=== PATIENT | female | born 1985 | race Caucasian/White ===

== ENCOUNTER 2017-05-18 10:07 | Emergency (ER) | payer MEDICAID, OTHER ==
[2017-05-18 10:18] VITALS: BP 107/94
--- NOTE | 2017-05-18 11:17 | EDM.PDOC ---
ED HPI GENERAL MEDICAL PROBLEM - General Chief Complaint: Lower Extremity Injury/Pain Stated Complaint: LEFT FOOT, TOP Time Seen by Provider: 05/18/17 11:00 Source of Information: Reports: Patient History Limitations: Reports: No Limitations - History of Present Illness INITIAL COMMENTS - FREE TEXT/NARRATIVE: This 31 yo female patient reports to the ED with left upper foot pain. The patient reports she is currently in the [facility] on vacation visiting her family. The patient reports she has been running on the gravel roads in shoes that she got from [employer] and has had increased pain over the past 24 hours. Onset Date: 05/17/17 Duration: Constant, Getting Worse Location: Reports: Lower Extremity, Left Quality: Reports: Ache, Dull Severity: Moderate Improves with: Reports: None Worsens with: Reports: None Associated Symptoms: Reports: No Other Symptoms Left Feet Pain Score (Numeric/FACES): 7 - Related Data Allergies Allergy/AdvReac Type Severity Reaction Status Date / Time No Known Allergies Allergy Verified 05/18/17 10:14 Home Meds: Home Meds . [No Known Home Meds] 05/18/17 [History] Past Medical History Immunologic History: Reports: Other (See Below) Other Immunologic History: spleenectomy Social & Family History - Family History Family Medical History: Noncontributory - Tobacco Use Smoking Status *Q: Never Smoker - Caffeine Use Caffeine Use: Reports: Coffee, Soda - Recreational Drug Use Recreational Drug Use: No Review of Systems - Review of Systems Review Of Systems: ROS reveals no pertinent complaints other than HPI. ED EXAM, GENERAL - Physical Exam Exam: See Below Exam Limited By: No Limitations General Appearance: Alert, WD/WN, Moderate Distress, Thin Eye Exam: Bilateral Eye: EOMI, Normal Inspection, PERRL Ears: Normal External Exam, Normal Canal, Hearing Grossly Normal, Normal TMs Nose: Normal Inspection, Normal Mucosa, No Blood Throat/Mouth: Normal Inspection, Normal Lips, Normal Teeth, Normal Gums, Normal Oropharynx, Normal Voice, No Airway Compromise Head: Atraumatic, Normocephalic Neck: Normal Inspection, Supple, Non-Tender, Full Range of Motion Respiratory/Chest: No Respiratory Distress, Lungs Clear, Normal Breath Sounds, No Accessory Muscle Use, Chest Non-Tender Cardiovascular: Normal Peripheral Pulses, Regular Rate, Rhythm, No Edema, No Gallop, No JVD, No Murmur, No Rub GI/Abdominal: Normal Bowel Sounds, Soft, Non-Tender, No Organomegaly, No Distention, No Abnormal Bruit, No Mass (Female) Exam: Deferred Rectal (Female) Exam: Deferred Back Exam: Normal Inspection, Full Range of Motion, NT Extremities: Other (left foot pain ) Neurological: Alert, Oriented, CN II-XII Intact, Normal Cognition, Normal Gait, Normal Reflexes, No Motor/Sensory Deficits Psychiatric: Normal Affect, Normal Mood Skin Exam: Warm, Dry, Intact, Normal Color, No Rash Lymphatic: No Adenopathy Course - Vital Signs Last Recorded V/S: Last Vital Signs Temp 36.3 C 05/18/17 10:15 Pulse 64 05/18/17 10:15 Resp 16 05/18/17 10:15 BP 107/94 H 05/18/17 10:15 Pulse Ox 100 05/18/17 10:15 - Orders/Labs/Meds Orders: Active Orders 24 hr Category Date Time Status Foot Comp Min 3V Lt [CR] Urgent Exams 05/18/17 10:24 Ordered Meds: Medications Discontinued Medications Generic Name Dose Route Start Last Admin Trade Name Wolfq PRN Reason Stop Dose Admin Ketorolac Tromethamine 60 mg 05/18/17 11:57 Toradol IM 05/18/17 11:58 ONETIME ONE Departure - Departure Time of Disposition: 11:59 Disposition: Home, Self-Care 01 Condition: Fair Clinical Impression: Tendinitis of left foot - Discharge Information Instructions: Tendinitis, [id number] Forms: ED Department Discharge Care Plan Goals: The patient was advised of the examination and x-ray results during the visit. The patient was given an injection of Toradol (60 mg) while in the ED. The patient was discharged with s script for Toradol (10 mg) #20 to take 1 by mouth every 6 hours. If the patient has any additional symptoms or concerns, the patient should follow-up with her primary care facility or return to the emergency department. - My Orders Last 24 Hours: My Active Orders 05/18/17 10:24 Foot Comp Min 3V Lt [CR] Urgent - Assessment/Plan Last 24 Hours: My Active Orders 05/18/17 10:24 Foot Comp Min 3V Lt [CR] Urgent
[2017-05-18] MEDS ORDERED: Ketorolac 30 MG/ML SDV IM ONE (11:57)
== END 2017-05-18 12:06 | disposition home or self-care (01) ==
LOC: EDBD → DL.ED 10:07
DX: M77.52 Other enthesopathy of left foot and ankle (principal); Z98.890 Other specified postprocedural states
CPT/HCPCS: 73630; 96372; 99283; J1885

== ENCOUNTER 2017-06-08 17:36 | Emergency (ER) | payer MEDICAID ==
[2017-06-08 18:20] VITALS: BP 130/84
--- NOTE | 2017-06-08 18:42 | EDM.PDOC ---
ED HPI GENERAL MEDICAL PROBLEM - General Chief Complaint: General Stated Complaint: STREP OR FLU, [id number] Time Seen by Provider: 06/08/17 18:37 Source of Information: Reports: Patient History Limitations: Reports: No Limitations - History of Present Illness INITIAL COMMENTS - FREE TEXT/NARRATIVE: 31 yo F is here for scratchy throat, cough (mostly dry), runny nose, chills since Sunday06-06-17. She also endorses feeling warm and T-max was 100F earlier today. She reportedly appeared pale to her coworkers this morning so they sent her home. She has tried Tylenol, Robitussin, and OTC cough & allergy tablets. No known sick contacts. She reports she quit smoking on Sunday06-03-17. She has had tonsillectomy in the past. Onset Date: 06/06/17 Generalized Pain Score (Numeric/FACES): 1 - Related Data Allergies Allergy/AdvReac Type Severity Reaction Status Date / Time No Known Allergies Allergy Verified 06/08/17 18:18 Home Meds: Home Meds . [No Known Home Meds] 05/18/17 [History] Past Medical History Immunologic History: Reports: Other (See Below) Other Immunologic History: spleenectomy - Past Surgical History HEENT Surgical History: Reports: Tonsillectomy Social & Family History - Family History Family Medical History: Noncontributory - Tobacco Use Smoking Status *Q: Never Smoker Second Hand Smoke Exposure: No - Caffeine Use Caffeine Use: Reports: Coffee, Energy Drinks, Soda, Tea - Recreational Drug Use Recreational Drug Use: No ED ROS GENERAL - Review of Systems Review Of Systems: See Below Constitutional: Reports: Chills HEENT: Reports: Throat Pain (Scratchy/sore throat.), Other (Ear pressure sensation.) Respiratory: Reports: Cough Cardiovascular: Reports: No Symptoms Endocrine: Reports: No Symptoms GI/Abdominal: Reports: No Symptoms : Reports: No Symptoms Musculoskeletal: Reports: No Symptoms Skin: Reports: No Symptoms Neurological: Reports: No Symptoms Psychiatric: Reports: No Symptoms Hematologic/Lymphatic: Reports: Other (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 Rapid strep screen obtained & returned negative.) Head: Atraumatic Neck: Supple, Other (No cervical lymphadenopathy.) Respiratory/Chest: No Respiratory Distress, Lungs Clear, Normal Breath Sounds, No Accessory Muscle Use Cardiovascular: Regular Rate, Rhythm, No Edema, No Murmur GI/Abdominal: Soft, Non-Tender, No Distention Course - Vital Signs Last Recorded V/S: Last Vital Signs Temp 97.7 F 06/08/17 18:18 Pulse 70 06/08/17 18:18 Resp 16 06/08/17 18:18 BP 130/84 06/08/17 18:18 Pulse Ox 100 06/08/17 18:18 - Orders/Labs/Meds Orders: Active Orders 24 hr Category Date Time Status CULTURE STREP A CONFIRMATION [] Stat Lab 06/08/17 18:25 Results STREP SCRN A RAPID W CULT CONF [] Stat Lab 06/08/17 18:25 Received Departure - Departure Time of Disposition: 18:50 Disposition: Home, Self-Care 01 Condition: Fair Clinical Impression: Viral URI with cough - Discharge Information Instructions: Upper Respiratory Infection, Adult, [id number], Cough, Adult Forms: ED Department Discharge Additional Instructions: Rapid strep screen is negative. You will be updated if the strep culture returns positive. stay well hydrated. symptoms control with as needed Tylenol/Motrin, lozenges, warm fluids (such as tea), honey, etc. frequent handwashing. viscous lidocaine prescribed (use on the prescription script). stay at home if fever, diarrhea, vomiting. Rx sent home: viscous lidocaine every 8 hrs as needed.
== END 2017-06-08 19:02 | disposition home or self-care (01) ==
LOC: DL.ED 17:36
DX: J06.9 Acute upper respiratory infection, unspecified (principal); Z98.890 Other specified postprocedural states
CPT/HCPCS: 87081; 87430; 99283

== ENCOUNTER 2017-08-10 01:52 | Emergency (ER) | payer MEDICAID ==
[2017-08-10] MEDS ORDERED: Sodium Chloride 0.9% 1,000 ML IV ONE (02:00)
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
[2017-08-10 02:36] LABS: CHLORIDE,CL 108 mmol/L (101-111); SODIUM,NA 142 mmol/L (135-145)
[2017-08-10 03:12] VITALS: BP 99/61
--- NOTE | 2017-08-13 12:51 | EKG ---
08/10/2017 - ELVER CASANOVA I reviewed the EKG and agree with the machine's reading. [facility] /[id number]
== END 2017-08-10 04:03 | disposition home or self-care (01) ==
LOC: DL.ED 01:52
DX: R55 Syncope and collapse (principal); F19.90 Other psychoactive substance use, unspecified, uncomplicated; S01.81XA Laceration without foreign body of other part of head, initial encounter; W19.XXXA Unspecified fall, initial encounter
CPT/HCPCS: 12011; 36415; 70450; 70486; 72125; 80053; 80305; 81001; 81025; 84484; 85025; 85379; 93005; 96360; 99284; G0480; J7030

== ENCOUNTER 2017-12-01 11:28 | Emergency (ER) | payer BC, MEDICAID ==
[2017-12-01 11:42] VITALS: BP 121/83
--- NOTE | 2017-12-01 12:33 | EDM.PDOC ---
Scribed by Polina Ramírez 12/01/17 1233 for Edgardo Trevizo MD ED HPI GENERAL MEDICAL PROBLEM - General Chief Complaint: Lower Extremity Injury/Pain Stated Complaint: [id number] BROKE TOE Time Seen by Provider: 12/01/17 11:41 Source of Information: Reports: Patient, RN, RN Notes Reviewed History Limitations: Reports: No Limitations - History of Present Illness INITIAL COMMENTS - FREE TEXT/NARRATIVE: Patient presents complaining of pain to the right 5th toe sustained this morning when the patient accidentally kicked a door frame. No other injury. Onset: Today Duration: Constant Location: Reports: Lower Extremity, Right Quality: Reports: Ache Severity: Moderate Improves with: Reports: None Worsens with: Reports: None Associated Symptoms: Reports: No Other Symptoms Right 5-Little toe Pain Score (Numeric/FACES): 8 - Related Data Allergies Allergy/AdvReac Type Severity Reaction Status Date / Time No Known Allergies Allergy Verified 08/10/17 01:59 Home Meds: Home Meds . [No Known Home Meds] 05/18/17 [History] Past Medical History Immunologic History: Reports: Other (See Below) Other Immunologic History: spleenectomy - Past Surgical History HEENT Surgical History: Reports: Tonsillectomy Social & Family History - Family History Family Medical History: Noncontributory - Tobacco Use Smoking Status *Q: Never Smoker Years of Tobacco use: 19 Packs/Tins Daily: 0.5 Second Hand Smoke Exposure: No - Caffeine Use Caffeine Use: Reports: Coffee, Energy Drinks, Soda, Tea - Recreational Drug Use Recreational Drug Use: No - Living Situation & Occupation Occupation: Employed Review of Systems - Review of Systems Review Of Systems: ROS reveals no pertinent complaints other than HPI. ED EXAM, GENERAL - Physical Exam Exam: See Below Exam Limited By: No Limitations General Appearance: Alert, WD/WN, No Apparent Distress Head: Atraumatic, Normocephalic Neck: Normal Inspection, Supple, Non-Tender, Full Range of Motion Respiratory/Chest: No Respiratory Distress Cardiovascular: Normal Peripheral Pulses, Regular Rate, Rhythm, No Edema, No Gallop, No JVD, No Murmur, No Rub Back Exam: Normal Inspection, Full Range of Motion, NT Extremities: Other (Right 5th toe with mild soft tissue swelling and bruising. Tender to palpation. ) Neurological: Alert, Oriented, CN II-XII Intact, Normal Cognition, Normal Gait, Normal Reflexes, No Motor/Sensory Deficits Psychiatric: Normal Affect, Normal Mood Skin Exam: Warm, Dry, Intact, Normal Color, No Rash Course - Vital Signs Last Recorded V/S: Last Vital Signs Temp 36.9 C 12/01/17 11:41 Pulse 78 12/01/17 11:41 Resp 16 12/01/17 11:41 BP 121/83 12/01/17 11:41 Pulse Ox 98 12/01/17 11:41 - Radiology Interpretation Free Text/Narrative:: X-ray right 5th toe: non-displaced fracture of right 5th proximal phalanx, see Rad. report. Departure - Departure Time of Disposition: 12:17 Disposition: Home, Self-Care 01 Condition: Good Clinical Impression: Fracture of fifth toe, right, closed Qualifiers: Encounter type: initial encounter Qualified Code(s): S92.501A - Displaced unspecified fracture of right lesser toe(s), initial encounter for closed fracture - Discharge Information Instructions: Toe Fracture, [id number] Referrals: PCP,None [Ordering Only Provider] - Forms: ED Department Discharge Additional Instructions: RX: Polvadera 5/325mg. *DO not drive or work while under the influence of this medication. Rest, ice and elevate right foot. Wear shoe splint for 3 to 4 weeks. Renny tape affected to as needed for comfort. Follow up with your doctor in 2 to 3 weeks for recheck. I have read and agree with the documentation that has been completed regarding this visit. By signing this record, I attest that the documentation was completed in my physical presence and is an accurate record of the encounter.
== END 2017-12-01 12:25 | disposition home or self-care (01) ==
LOC: DL.ED 11:28
DX: S92.511A Displaced fracture of proximal phalanx of right lesser toe(s), initial encounter for closed fracture (principal); Z72.0 Tobacco use; W22.09XA Striking against other stationary object, initial encounter
CPT/HCPCS: 73660-T9; 99283

== ENCOUNTER 2017-12-23 17:28 | Emergency (ER) | payer BC, MEDICAID ==
[2017-12-23] MEDS ORDERED: Sodium Chloride 0.9% 10 ML Syringe FLUSH PRN (17:41)
[2017-12-23 18:19] LABS: CHLORIDE,CL 106 mmol/L (101-111); SODIUM,NA 138 mmol/L (135-145)
[2017-12-23 20:02] VITALS: BP 121/73
[2017-12-23] MEDS ORDERED: Acetaminophen 325 MG Tab PO ONE (20:27)
--- NOTE | 2017-12-23 20:46 | EDM.PDOC ---
Scribed by Polina Ramírez 12/23/17 [id number] for Reece Cooper MD ED HPI GENERAL MEDICAL PROBLEM - General Chief Complaint: Headache Stated Complaint: BY AMBULANCE Time Seen by Provider: 12/23/17 18:53 Source of Information: Reports: Patient History Limitations: Reports: No Limitations - History of Present Illness INITIAL COMMENTS - FREE TEXT/NARRATIVE: states remember going to [employer] and woke up on floor of [employer]. had same last aug-jun and nobody knows what's wrong. denies grugs or alcohol but thinks might have taken more wellbutrin for her anxiety. presently feels shaky and floating. and back of head hurts a lot. denies chest pain but does feel a little tight on off. - Related Data Allergies Allergy/AdvReac Type Severity Reaction Status Date / Time No Known Allergies Allergy Verified 08/10/17 01:59 Home Meds: Home Meds Diclofenac Sodium [Voltaren] 75 mg PO DAILY 12/23/17 [History] buPROPion [buPROPion XL] 150 mg PO DAILY 12/23/17 [History] traMADol HCl [Tramadol HCl] 50 mg PO PRN 12/23/17 [History] Past Medical History Psychiatric History: Reports: Depression Immunologic History: Reports: Other (See Below) Other Immunologic History: spleenectomy - Past Surgical History HEENT Surgical History: Reports: Tonsillectomy GI Surgical History: Reports: Other (See Below) Other GI Surgeries/Procedures: spleenectomy Endocrine Surgical History: Reports: Other (See Below) Other Endocrine Surgeries/Procedures: spleenectomy Social & Family History - Family History Family Medical History: Noncontributory - Tobacco Use Smoking Status *Q: Former Smoker Years of Tobacco use: 20 Packs/Tins Daily: 0.5 Used Tobacco, but Quit: Yes Month/Year Tobacco Last Used: november 2017 Second Hand Smoke Exposure: No - Caffeine Use Caffeine Use: Reports: Coffee, Soda - Recreational Drug Use Recreational Drug Use: No - Living Situation & Occupation Occupation: Employed ED ROS GENERAL - Review of Systems Review Of Systems: ROS reveals no pertinent complaints other than HPI. - Physical Exam Exam: See Below Exam Limited By: No Limitations General Appearance: Alert, WD/WN, Anxious, Mild Distress, Other (upset) Eye Exam: Bilateral Eye: PERRL (pupils ER @ 4mm) Ears: Normal External Exam, Normal Canal, Hearing Grossly Normal, Normal TMs Throat/Mouth: Normal Voice, No Airway Compromise Head Exam: Scalp Tenderness, Other (no O/B, occiput tenderness) Neck: Non-Tender, Full Range of Motion Respiratory/Chest: No Respiratory Distress Cardiovascular: Regular Rate, Rhythm GI/Abdominal: Soft, Non-Tender Neuro Exam (Abbreviated): Alert, Oriented, Normal Cognition, Normal Gait, No Motor/Sensory Deficits Psychiatric: Anxious Skin Exam: Warm, Dry, Normal Color EKG INTERPRETATION EKG Date: 12/23/17 Time: 18:07 Rhythm: Other (sinus rhythm) Rate (Beats/Min): 79 [place]: Normal P-Wave: Present QRS: Normal ST-T: Normal QT: Normal Course - Vital Signs Last Recorded V/S: Last Vital Signs Temp 36.8 C 12/23/17 20:01 Pulse 76 12/23/17 20:01 Resp 16 12/23/17 20:01 BP 121/73 12/23/17 20:01 Pulse Ox 99 12/23/17 20:01 - Orders/Labs/Meds Orders: Active Orders 24 hr Category Date Time Status EKG Documentation Completion [RC] STAT Care 12/23/17 17:41 Active Peripheral IV Care [RC] . DIRECTED Care 12/23/17 17:42 Active Head wo Cont [CT] Urgent Exams 12/23/17 18:52 Taken Sodium Chloride 0.9% [Saline Flush] Med 12/23/17 17:41 Active 10 ml FLUSH ASDIRECTED PRN Peripheral IV Insertion Adult [OM.PC] Stat Oth 12/23/17 17:41 Ordered Medication Orders Sodium Chloride (Saline Flush) 10 ml FLUSH ASDIRECTED PRN PRN Reason: Keep Vein Open Last Admin: 12/23/17 18:22 Dose: 10 ml Labs: Laboratory Tests 12/23/17 12/23/17 12/23/17 Range/Units 17:50 17:50 18:15 WBC 10.0 (5.0-10.0) 10^3/uL RBC 3.72 L (4.2-5.4) 10^6/uL Hgb 12.6 (12.0-16.0) g/dL Hct 37.0 (37.0-47.0) % MCV 99.5 (80-100) fL MCH 33.9 (27.0-34.0) pg MCHC 34.1 (33.0-35.0) g/dL Plt Count 378 D (150-450) 10^3/uL Neut % (Auto) 41.0 L (42.2-75.2) % Lymph % (Auto) 37.5 (20.5-50.1) % Randolph % (Auto) 19.3 H (2-8) % Eos % (Auto) 1.7 (1.0-3.0) % Baso % (Auto) 0.5 (0.0-1.0) % Add Manual Diff Yes Neutrophils % (Manual) 45 (42-75) % Band Neutrophils % 2 % Lymphocytes % (Manual) 30 (20-50) % Atypical Lymphs % 0 % Monocytes % (Manual) 21 H (2-8) % Eosinophils % (Manual) 2 (1-3) % Basophils % (Manual) 0 Sodium 138 (135-145) mmol/L Potassium 3.4 L (3.6-5.0) mmol/L Chloride 106 (101-111) mmol/L Carbon Dioxide 22.0 (21.0-31.0) mmol/L Anion Gap 13.4 BUN 9 (7-18) mg/dL Creatinine 0.7 (0.6-1.3) mg/dL Est Cr Clr Drug Dosing 111.16 mL/min Estimated GFR (MDRD) > 60 BUN/Creatinine Ratio 12.85 Glucose 88 (74-105) mg/dL Calcium 9.4 (8.4-10.2) mg/dl Total Bilirubin 0.2 (0.2-1.0) mg/dL AST 29 (10-42) IU/L ALT 31 (10-60) IU/L Alkaline Phosphatase 39 L (42-121) IU/L Troponin I (0.00-0.02) ng/ml Total Protein 7.1 (6.7-8.2) g/dl Albumin 4.3 (3.2-5.5) g/dl Globulin 2.8 Albumin/Globulin Ratio 1.54 Urine Color Yellow (YELLOW) Urine Appearance Slightly cloudy (CLEAR) Urine pH 6.0 (5.0-9.0) Ur Specific Am[place] 1.015 (1.005-1.030) Urine Protein 30 H (NEGATIVE) Urine Glucose (UA) Negative (NEGATIVE) Urine Ketones Negative (NEGATIVE) Urine Occult Blood Negative (NEGATIVE) Urine Nitrite Negative (NEGATIVE) Urine Bilirubin Negative (NEGATIVE) Urine Urobilinogen 0.2 (0.2-1.0) mg/dL Ur Leukocyte Esterase Trace H (NEGATIVE) Urine RBC 0-5 /HPF Urine WBC 5-10 H (0-5/HPF) /HPF Ur Epithelial Cells Many H /HPF Urine Bacteria Many H (0-FEW/HPF) /HPF Urine Mucus Moderate H /LPF Urine Other See note Urine HCG, Qual Urine Opiates Screen (NEGATIVE) Ur Oxycodone Screen (NEGATIVE) Urine Methadone Screen (NEGATIVE) Ur Barbiturates Screen (NEGATIVE) U Tricyclic Antidepress (NEGATIVE) Ur Phencyclidine Scrn (NEGATIVE) Ur Amphetamine Screen (NEGATIVE) U Methamphetamines Scrn (NEGATIVE) Urine MDMA Screen (NEGATIVE) U Benzodiazepines Scrn (NEGATIVE) Urine Cocaine Screen (NEGATIVE) U Marijuana (THC) Screen (NEGATIVE) Ethyl Alcohol < 5 mg/dL 12/23/17 12/23/17 12/23/17 Range/Units 18:15 18:15 18:50 WBC (5.0-10.0) 10^3/uL RBC (4.2-5.4) 10^6/uL Hgb (12.0-16.0) g/dL Hct (37.0-47.0) % MCV (80-100) fL MCH (27.0-34.0) pg MCHC (33.0-35.0) g/dL Plt Count (150-450) 10^3/uL Neut % (Auto) (42.2-75.2) % Lymph % (Auto) (20.5-50.1) % Randolph % (Auto) (2-8) % Eos % (Auto) (1.0-3.0) % Baso % (Auto) (0.0-1.0) % Add Manual Diff Neutrophils % (Manual) (42-75) % Band Neutrophils % % Lymphocytes % (Manual) (20-50) % Atypical Lymphs % % Monocytes % (Manual) (2-8) % Eosinophils % (Manual) (1-3) % Basophils % (Manual) Sodium (135-145) mmol/L Potassium (3.6-5.0) mmol/L Chloride (101-111) mmol/L Carbon Dioxide (21.0-31.0) mmol/L Anion Gap BUN (7-18) mg/dL Creatinine (0.6-1.3) mg/dL Est Cr Clr Drug Dosing mL/min Estimated GFR (MDRD) BUN/Creatinine Ratio Glucose (74-105) mg/dL Calcium (8.4-10.2) mg/dl Total Bilirubin (0.2-1.0) mg/dL AST (10-42) IU/L ALT (10-60) IU/L Alkaline Phosphatase (42-121) IU/L Troponin I < 0.02 (0.00-0.02) ng/ml Total Protein (6.7-8.2) g/dl Albumin (3.2-5.5) g/dl Globulin Albumin/Globulin Ratio Urine Color (YELLOW) Urine Appearance (CLEAR) Urine pH (5.0-9.0) Ur Specific Amasa (1.005-1.030) Urine Protein (NEGATIVE) Urine Glucose (UA) (NEGATIVE) Urine Ketones (NEGATIVE) Urine Occult Blood (NEGATIVE) Urine Nitrite (NEGATIVE) Urine Bilirubin (NEGATIVE) Urine Urobilinogen (0.2-1.0) mg/dL Ur Leukocyte Esterase (NEGATIVE) Urine RBC /HPF Urine WBC (0-5/HPF) /HPF Ur Epithelial Cells /HPF Urine Bacteria (0-FEW/HPF) /HPF Urine Mucus /LPF Urine Other Urine HCG, Qual Negative Urine Opiates Screen Negative (NEGATIVE) Ur Oxycodone Screen Negative (NEGATIVE) Urine Methadone Screen Negative (NEGATIVE) Ur Barbiturates Screen Negative (NEGATIVE) U Tricyclic Antidepress Negative (NEGATIVE) Ur Phencyclidine Scrn Negative (NEGATIVE) Ur Amphetamine Screen Negative (NEGATIVE) U Methamphetamines Scrn Negative (NEGATIVE) Urine MDMA Screen Negative (NEGATIVE) U Benzodiazepines Scrn Positive H (NEGATIVE) Urine Cocaine Screen Negative (NEGATIVE) U Marijuana (THC) Screen Negative (NEGATIVE) Ethyl Alcohol mg/dL Meds: Medications Generic Name Dose Route Start Last Admin Trade Name Freq PRN Reason Stop Dose Admin Sodium Chloride 10 ml 12/23/17 17:41 12/23/17 18:22 Saline Flush FLUSH 10 ml ASDIRECTED PRN Administration Keep Vein Open Discontinued Medications Generic Name Dose Route Start Last Admin Trade Name Freq PRN Reason Stop Dose Admin Acetaminophen 325 mg 12/23/17 20:27 12/23/17 20:33 Tylenol PO 12/23/17 20:28 325 mg NOW ONE Administration - Re-Assessments/Exams Free Text/Narrative Re-Assessment/Exam: 12/23/17 20:28 results discussed with pt & grandma who states pt had same last year where pt was shaking like a seizure but her mother never took her for f/u. Departure - Departure Time of Disposition: 20:29 Disposition: Home, Self-Care 01 Condition: Good Clinical Impression: Contusion of scalp, initial encounter, Syncopal seizure - Discharge Information Instructions: Head Injury, Adult, [id number] Forms: ED Department Discharge Additional Instructions: 1) rest and avoid bending lifting straining 2) ice to swelling on back of head 3) see EPI TOMORROW FOR EEG STUDY and possible NEUROLOGY CONSULT FOR SEIZURES 4) avoid solid foods tonight, may have jello, popsicle, juice. 5) may give tylenol as needed for headache 6) recheck if there is any change or concern - My Orders Last 24 Hours: My Active Orders 12/23/17 18:52 Head wo Cont [CT] Urgent - Assessment/Plan Last 24 Hours: My Active Orders 12/23/17 18:52 Head wo Cont [CT] Urgent I have read and agree with the documentation that has been completed regarding this visit. By signing this record, I attest that the documentation was completed in my physical presence and is an accurate record of the encounter.
--- NOTE | 2017-12-24 17:17 | EKG ---
12/23/2017 - ELVER CASANOVA - TIME: 1807 hours. FINDINGS: EKG shows sinus rhythm rate of 79 per minute. [facility] /[id number]
== END 2017-12-23 20:41 | disposition home or self-care (01) ==
LOC: DL.ED 17:28
DX: S00.03XA Contusion of scalp, initial encounter (principal); R55 Syncope and collapse; R56.9 Unspecified convulsions; Z79.899 Other long term (current) drug therapy; Z87.891 Personal history of nicotine dependence; X58.XXXA Exposure to other specified factors, initial encounter
CPT/HCPCS: 36415; 70450; 80053; 80305; 81001; 81025; 84484; 85025; 93005; 99285; A9270-GY; G0480; J7050

== ENCOUNTER 2018-06-28 07:05 | Emergency (ER) | payer SELFPAY ==
[2018-06-28 08:01] VITALS: BP 127/73
--- NOTE | 2018-06-28 14:52 | CR ---
Clinical history: Clinical history: 32-year-old female "stubbed" second toe. Interpretation: 3 views left second toe and adjacent digits confirm soft tissue swelling with tiny no ndisplaced avulsion fragment (age uncertain-not appreciated on 18 May 2017 however) dorsal aspect base of the distal phalanx at the DIP joint second toe (lateral view). No sign of other fracture or joint dislocation. No foreign bodies.
== END 2018-06-28 09:14 | disposition home or self-care (01) ==
LOC: DL.ED 07:05
DX: S92.532A Displaced fracture of distal phalanx of left lesser toe(s), initial encounter for closed fracture (principal); W22.8XXA Striking against or struck by other objects, initial encounter
CPT/HCPCS: 73660-T1; 99282; 99283

== ENCOUNTER 2020-02-21 00:57 | Emergency (ER) | payer OTHER ==
[2020-02-21] MEDS ORDERED: GI Cocktail Oral Solution 30 ML PO ONE (01:12)
[2020-02-21] MEDS ORDERED: Ondansetron 4 MG/2 ML SDV IVPUSH ONE (01:12)
--- NOTE | 2020-02-21 01:15 | EDM.PDOC ---
ED HPI GENERAL MEDICAL PROBLEM - General Chief Complaint: Abdominal Pain Stated Complaint: SEVERE ABD PAIN Time Seen by Provider: 02/21/20 01:13 Source of Information: Reports: Patient History Limitations: Reports: No Limitations - History of Present Illness INITIAL COMMENTS - FREE TEXT/NARRATIVE: onset epiG pain about 10pm was eating cheese sticks prior, been retching and not getting better. prior h/o of problem. denies . Epigastric Pain Score (Numeric/FACES): 5 - Related Data Allergies Allergy/AdvReac Type Severity Reaction Status Date / Time No Known Allergies Allergy Verified 02/21/20 01:11 Home Meds: Home Meds . 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 She states she has seen neurologist, and no seizure meds recommended. She states that when she has these her heartrate is always low, but she has never worn a holter monitor or had cardiology consult. Gastrointestinal History: Reports: GERD Psychiatric History: Reports: Depression Immunologic History: Reports: Other (See Below) Other Immunologic History: spleenectomy - Past Surgical History HEENT Surgical History: Reports: Tonsillectomy GI Surgical History: Reports: Other (See Below) Other GI Surgeries/Procedures: spleenectomy Endocrine Surgical History: Reports: Other (See Below) Other Endocrine Surgeries/Procedures: spleenectomy Social & Family History - Family History Family Medical History: Noncontributory - Caffeine Use Caffeine Use: Reports: Coffee, Soda - Living Situation & Occupation Occupation: Employed ED ROS GENERAL - Review of Systems Review Of Systems: Comprehensive ROS is negative, except as noted in HPI. ED EXAM, GI/ABD - Physical Exam Exam: See Below Exam Limited By: No Limitations General Appearance: Alert, WD/WN, Mild Distress, Moderate Distress, Active Emesis, Other (crying) Ears: Hearing Grossly Normal Throat/Mouth: Normal Voice, No Airway Compromise Head: Atraumatic Neck: Non-Tender, Full Range of Motion Respiratory/Chest: No Respiratory Distress Cardiovascular: Regular Rate, Rhythm GI/Abdominal Exam: Tender, Other (epigastric region). No: Distended, Guarding, Rigid, Rebound Neurological: Alert, Oriented, Normal Cognition, Normal Gait, No Motor/Sensory Deficits Psychiatric: Tearful Skin Exam: Warm, Dry, Normal Color Lymphatic: No Adenopathy Course - Vital Signs Last Recorded V/S: Last Vital Signs Temp Pulse 102 H 02/21/20 01:16 Resp 20 02/21/20 01:16 BP 127/88 02/21/20 01:16 Pulse Ox 97 02/21/20 01:16 - Orders/Labs/Meds Orders: Active Orders 24 hr Category Date Time Status Abdomen Pelvis w Cont [CT] Urgent Exams 02/21/20 01:35 Taken Labs: Laboratory Tests 02/21/20 02/21/20 Range/Units 01:14 01:14 WBC 18.7 H (5.0-10.0) 10^3/uL RBC 4.39 (4.2-5.4) 10^6/uL Hgb 15.4 (12.0-16.0) g/dL Hct 41.7 (37.0-47.0) % MCV 95.0 (80-100) fL MCH 35.1 H (27.0-34.0) pg MCHC 36.9 H (33.0-35.0) g/dL Plt Count 289 (150-450) 10^3/uL Neut % (Auto) 58.3 (42.2-75.2) % Lymph % (Auto) 27.7 (20.5-50.1) % [place] % (Auto) 12.7 H (2-8) % Eos % (Auto) 1.1 (1.0-3.0) % Baso % (Auto) 0.2 (0.0-1.0) % Sodium 136 (136-145) mmol/L Potassium 3.9 (3.5-5.1) mmol/L Chloride 98 (98-107) mmol/L Carbon Dioxide 30 (21-32) mmol/L Anion Gap 11.9 (7-13) mEq/L BUN 13 (7-18) mg/dL Creatinine 1.07 H (0.55-1.02) mg/dL Est Cr Clr Drug Dosing 71.36 mL/min Estimated GFR (MDRD) 58 BUN/Creatinine Ratio 12.1 (No establ ref range) Glucose 93 (74-99) mg/dL Calcium 9.9 (8.5-10.1) mg/dL Total Bilirubin 0.3 (0.2-1.0) mg/dL AST 17 (15-37) U/L ALT 24 (14-59) U/L Alkaline Phosphatase 69 (46-116) U/L Total Protein 7.9 (6.4-8.2) g/dL Albumin 4.5 (3.4-5.0) g/dL Globulin 3.4 Albumin/Globulin Ratio 1.3 Amylase 29 (25-115) U/L Lipase 53 L (73-393) U/L Meds: Medications Discontinued Medications Generic Name Dose Route Start Last Admin Trade Name Freq PRN Reason Stop Dose Admin Al Hydroxide/Mg Hydroxide 30 ml 02/21/20 01:12 02/21/20 01:19 Gi Cocktail PO 02/21/20 01:13 30 ml ONETIME ONE Administration Iopamidol 100 ml 02/21/20 01:35 02/21/20 01:42 Isovue-300 (61%) IVPUSH 02/21/20 01:36 100 ml ONETIME ONE Administration Ondansetron HCl 4 mg 02/21/20 01:12 02/21/20 01:17 Zofran IVPUSH 02/21/20 01:13 4 mg ONETIME ONE Administration - Re-Assessments/Exams Free Text/Narrative Re-Assessment/Exam: 02/21/20 02:43 results discussed with pt who is feeling much better s/p GI cocktail. Departure - Departure Time of Disposition: 02:43 Disposition: Home, Self-Care 01 Condition: Good Clinical Impression: Constipation by delayed colonic transit Abdominal pain Qualifiers: Abdominal location: periumbilical Qualified Code(s): R10.33 - Periumbilical pain - Discharge Information Instructions: Constipation, Adult, [id number] Forms: ED Department Discharge Additional Instructions: 1) avoid solid foods next 48 hours 2) have liquids, jello, prune juice, soft foods 3) follow up at clinic rx given; bentyl 10mg bid x 12 Sepsis Event Note - Focused Exam Vital Signs: Vital Signs Pulse Resp BP Pulse Ox 02/21/20 01:16 102 H 20 127/88 97 Date Exam was Performed: 02/21/20 Time Exam was Performed: 02:43 - My Orders Last 24 Hours: My Active Orders 02/21/20 01:35 Abdomen Pelvis w Cont [CT] Urgent - Assessment/Plan Last 24 Hours: My Active Orders 02/21/20 01:35 Abdomen Pelvis w Cont [CT] Urgent
[2020-02-21 01:18] VITALS: BP 127/88; PULSE 102
[2020-02-21] MEDS ORDERED: Iopamidol 612 MG/ML 100 ML Bottle IVPUSH ONE (01:35)
[2020-02-21 02:11] LABS: ANION GAP 11.9 mEq/L (7-13)
== END 2020-02-21 02:51 | disposition home or self-care (01) ==
LOC: DL.ED 00:57
DX: K59.01 Slow transit constipation (principal)
CPT/HCPCS: 36415; 74177; 80053; 82150; 83690; 85025; 96374; 99284; A9270; J2405; Q9967; 99283

== ENCOUNTER 2021-10-16 09:28 | Emergency (ER) | payer MEDICAID ==
[2021-10-16 10:53] VITALS: BP 120/58; PULSE 65
[2021-10-16 11:52] LABS: BARBITURATES,URINE NEGATIVE (NEGATIVE); BENZODIAZEPINE,URINE NEGATIVE (NEGATIVE); MDMA (ECSTASY), URINE POSITIVE (NEGATIVE); METHADONE,URINE NEGATIVE (NEGATIVE); METHAMPHETAMINES,URINE POSITIVE (NEGATIVE); OPIATES,URINE NEGATIVE (NEGATIVE); TCA,URINE POSITIVE (NEGATIVE)
[2021-10-16 11:53] LABS: AMPHETAMINES,URINE POSITIVE (NEGATIVE); OXYCODONE,URINE NEGATIVE (NEGATIVE); PHENCYCLIDINE,URINE NEGATIVE (NEGATIVE)
[2021-10-16 12:01] LABS: CORONAVIRUS COVID-19 NAA NEGATIVE (NEGATIVE)
[2021-10-16 12:55] LABS: ANION GAP 14.8 mEq/L (7-13); CHLORIDE,CL 102 mmol/L (98-107); SODIUM,NA 138 mmol/L (136-145)
== END 2021-10-16 13:58 | disposition home or self-care (01) ==
LOC: DL.ED 09:28
DX: O99.891 Other specified diseases and conditions complicating pregnancy (principal); R10.2 Pelvic and perineal pain; O99.511 Diseases of the respiratory system complicating pregnancy, first trimester; J06.9 Acute upper respiratory infection, unspecified; Z72.0 Tobacco use; Z20.822 Contact with and (suspected) exposure to COVID-19
CPT/HCPCS: 0240U; 36415; 80053; 80305; 81003; 81025; 82150; 83690; 83735; 84702; 85025; 86140; 99284

== ENCOUNTER 2023-03-17 07:01 | Emergency (ER) | payer MEDICAID ==
[2023-03-17] MEDS ORDERED: Bupivacaine 0.25% 10 ML SDV INJECT ONE (07:02)
[2023-03-17 08:03] VITALS: BP 123/90; PULSE 67
== END 2023-03-17 07:53 | disposition home or self-care (01) ==
LOC: DL.ED 07:01
DX: O99.612 Diseases of the digestive system complicating pregnancy, second trimester (principal); K02.9 Dental caries, unspecified; Z3A.20 20 weeks gestation of pregnancy; Z79.899 Other long term (current) drug therapy
CPT/HCPCS: 64400; 99282; J3490

== ENCOUNTER 2023-07-12 09:43 | Inpatient (IN) | payer MEDICAID ==
[2023-07-12] MEDS ORDERED: Penicillin G Potassium 5 MILLUNITS in Sodium Chloride 0.9% 100 ML IV ONE (10:32)
[2023-07-12] MEDS ORDERED: Carboprost Tromethamine 250 MCG/1 ML Amp IM PRN (10:47)
[2023-07-12] MEDS ORDERED: Lidocaine 1% 30 ML SDV INJECT ONE (10:47)
[2023-07-12] MEDS ORDERED: Sodium Chloride 0.9% 10 ML Syringe FLUSH PRN ×2 (10:47→19:18)
[2023-07-12] MEDS ORDERED: Methylergonovine 0.2 MG/1 ML Amp IM PRN (10:47)
[2023-07-12] MEDS ORDERED: Tranexamic Acid 1,000 MG in Sodium Chloride 0.9% 100 ML IV PRN ×4 (10:47)
[2023-07-12] MEDS ORDERED: Lactated Ringers 1,000 ML IV ONE (10:47)
[2023-07-12] MEDS ORDERED: Misoprostol 25 MCG (1/4 of 100 MCG) Tab VAG PRN (10:52)
[2023-07-12] MEDS ORDERED: Penicillin G Potassium 5,000,000 Unit Vial ONE (14:27)
[2023-07-12] MEDS: Penicillin G Potassium 3 MILLUNITS in Sodium Chloride 0.9% 100 ML IV SCH ×3 (14:34→23:23)
[2023-07-12] MEDS: Lactated Ringers 1,000 ML IV SCH ×2 (16:01→16:52)
[2023-07-12] MEDS: Oxytocin/Normal Saline 30 UNIT/500 ML BAG IV SCH ×2 (16:01→18:56)
[2023-07-12] MEDS ORDERED: Phenylephrine HCl In 0.9% NaCl 1 MG/10 ML Syringe IVPUSH PRN (17:03)
[2023-07-12] MEDS ORDERED: ePHEDrine 50 MG/ML SDV IVPUSH PRN (17:03)
[2023-07-12] MEDS ORDERED: Ropivacaine 200 MG in Premix Bag 1 BAG EPIDUR SCH (17:15)
[2023-07-12] MEDS: Misoprostol 400 MCG (4 X 100 MCG TAB) RECTAL PRN ×2 (18:25→18:50)
[2023-07-12] MEDS ORDERED: Oxytocin 10 Units/1 ML SDV IM PRN (19:18)
[2023-07-12] MEDS ORDERED: Benzocaine/Menthol 20%-0.5% Spray 78 GM Cannister TOP PRN (19:18)
[2023-07-12] MEDS ORDERED: Simethicone 80 MG Tab.Chew PO PRN (19:18)
[2023-07-12 19:27] LABS: HEMATOCRIT 28.4 % (37.0-47.0); HEMOGLOBIN 9.4 g/dL (12.0-16.0); MEAN CORPUSCULAR HEMOGLOBIN 33.1 pg (27.0-34.0); MEAN CORPUSCULAR HGB CONC 33.1 g/dL (33.0-35.0); RED BLOOD CELL COUNT 2.84 10^6/uL (4.2-5.4); WHITE BLOOD CELL COUNT,WBC 15.8 10^3/uL (5.0-10.0)
[2023-07-12] MEDS ORDERED: Scopolamine 1.5 MG Transdermal Patch TRDERM PRN (20:01)
[2023-07-12] MEDS ORDERED: ceFAZolin 2 GM Vial IVPUSH SCH (22:00)
[2023-07-12] MEDS: Docusate Sodium 100 MG Cap PO PRN (23:07)
[2023-07-12] MEDS: Ibuprofen 800 MG Tab PO PRN (23:07)
[2023-07-13 02:01] LABS: HEMATOCRIT 24.6 % (37.0-47.0); HEMOGLOBIN 8.2 g/dL (12.0-16.0); MEAN CORPUSCULAR HEMOGLOBIN 32.9 pg (27.0-34.0); MEAN CORPUSCULAR HGB CONC 33.3 g/dL (33.0-35.0); MEAN CORPUSCULAR VOLUME 98.8 fL (80-100); RED BLOOD CELL COUNT 2.49 10^6/uL (4.2-5.4)
[2023-07-13] MEDS: Penicillin G Potassium 3 MILLUNITS in Sodium Chloride 0.9% 100 ML IV SCH (03:08)
[2023-07-13] MEDS: ceFAZolin 2 GM Vial IVPUSH SCH ×3 (04:05→16:18)
[2023-07-13 06:50] LABS: MEAN CORPUSCULAR HEMOGLOBIN 32.8 pg (27.0-34.0); MEAN CORPUSCULAR HGB CONC 33.3 g/dL (33.0-35.0); MEAN CORPUSCULAR VOLUME 98.5 fL (80-100); RED BLOOD CELL COUNT 2.74 10^6/uL (4.2-5.4)
[2023-07-13] MEDS: Ferrous Sulfate 325 MG Tab PO SCH (09:02)
[2023-07-13] MEDS: Ibuprofen 800 MG Tab PO PRN ×2 (09:02→16:39)
[2023-07-13] MEDS: Prenatal Multivitamin with Calcium/Folic Acid/Iron Tab PO SCH (09:02)
[2023-07-13] MEDS: Docusate Sodium 100 MG Cap PO PRN ×2 (09:02→19:37)
[2023-07-13] MEDS: Acetaminophen 325 MG Tab PO PRN ×2 (15:00→19:36)
[2023-07-14] MEDS ORDERED: ceFAZolin 2 GM Vial IVPUSH SCH (04:00)
[2023-07-14] MEDS: Acetaminophen 325 MG Tab PO PRN (08:56)
[2023-07-14] MEDS: Prenatal Multivitamin with Calcium/Folic Acid/Iron Tab PO SCH (08:56)
[2023-07-14] MEDS: Ferrous Sulfate 325 MG Tab PO SCH (08:56)
[2023-07-14 09:32] VITALS: BP 128/83; PULSE 69
== END 2023-07-14 10:51 | disposition home or self-care (01) | DRG 807 ==
LOC: DL.OBCHECK 09:43 → DL.OB 09:45 → OBSVTOIN 18:22 → DL.OB 18:22
PROVIDERS: ADMIT Family Medicine; ATTEND Family Medicine
PROC: 10E0XZZ Delivery of Products of Conception, External Approach (ICD-10-PCS; principal; 2023-07-12)
PROC: 10D17Z9 Manual Extraction of Products of Conception, Retained, Via Natural or Artificial Opening (ICD-10-PCS; 2023-07-12)
PROC: 10907ZC Drainage of Amniotic Fluid, Therapeutic from Products of Conception, Via Natural or Artificial Opening (ICD-10-PCS; 2023-07-12)
DX: O14.04 Mild to moderate pre-eclampsia, complicating childbirth (principal); Z37.0 Single live birth; O99.02 Anemia complicating childbirth; O99.42 Diseases of the circulatory system complicating childbirth; R94.31 Abnormal electrocardiogram [ECG] [EKG]; J45.909 Unspecified asthma, uncomplicated; O99.52 Diseases of the respiratory system complicating childbirth; O72.2 Delayed and secondary postpartum hemorrhage; O45.93 Premature separation of placenta, unspecified, third trimester; O72.1 Other immediate postpartum hemorrhage; Z3A.37 37 weeks gestation of pregnancy; Z95.810 Presence of automatic (implantable) cardiac defibrillator
CPT/HCPCS: 01967; 36415; 51702; 59025; 59409; 85027; 86850; 86900; 86901; 86920; 86922; A9270-GY; J0690; J2540; J2590; J2795; J3490; J7120

== ENCOUNTER 2023-12-25 09:15 | Emergency (ER) | payer MEDICAID ==
[2023-12-25] MEDS: Ketorolac 30 MG/ML SDV IM ONE (09:35)
[2023-12-25] MEDS: Amoxicillin/Clavulanate K 875-125 MG Tab PO ONE (09:46)
[2023-12-25 09:59] VITALS: BP 130/102; PULSE 60
== END 2023-12-25 09:55 | disposition home or self-care (01) ==
LOC: DL.ED 09:15
DX: K04.7 Periapical abscess without sinus (principal); Z95.0 Presence of cardiac pacemaker; Z79.899 Other long term (current) drug therapy; F17.210 Nicotine dependence, cigarettes, uncomplicated
CPT/HCPCS: 96372; 99283; A9270; J1885

== ENCOUNTER 2023-12-26 16:45 | Emergency (ER) | payer MEDICAID | END 2023-12-26 17:15 | disposition left against medical advice (07) | LOC: DL.ED 16:45 | DX: Z53.21 Procedure and treatment not carried out due to patient leaving prior to being seen by health care provider (principal) ==

== ENCOUNTER 2024-04-16 06:40 | Emergency (ER) | payer MEDICAID ==
[2024-04-16 07:00] VITALS: BP 131/99; PULSE 69
[2024-04-16 08:01] LABS: BASOPHILS PERCENT AUTO 0.6 % (0.0-1.0); HEMATOCRIT 37.9 % (37.0-47.0); HEMOGLOBIN 12.5 g/dL (12.0-16.0); LYMPHOCYTES PERCENT AUTO 36.3 % (20.5-50.1); MEAN CORPUSCULAR HEMOGLOBIN 30.9 pg (27.0-34.0); MEAN CORPUSCULAR VOLUME 93.8 fL (80-100); MONOCYTES PERCENT AUTO 20.8 % (2-8); NEUTROPHILS PERCENT AUTO 38.3 % (42.2-75.2); PLATELET COUNT,PLT 406 10^3/uL (150-450); RED BLOOD CELL COUNT 4.04 10^6/uL (4.2-5.4); WHITE BLOOD CELL COUNT,WBC 6.7 10^3/uL (5.0-10.0)
[2024-04-16] MEDS: Sodium Chloride 0.9% 1,000 ML IV ONE (08:05)
[2024-04-16] MEDS: Ondansetron 4 MG/2 ML SDV IVPUSH ONE (08:05)
[2024-04-16 08:23] LABS: A/G RATIO 1.2; ALBUMIN 4.2 g/dL (3.4-5.0); ANION GAP 15.4 mEq/L (7-13); BILIRUBIN TOTAL 0.2 mg/dL (0.2-1.0); CALCIUM 9.4 mg/dL (8.5-10.1); CREATININE 0.79 mg/dL (0.55-1.02); EST CRCL DRUG DOSING (CG) 92.97 mL/min; MAGNESIUM 1.8 mg/dL (1.8-2.4); POTASSIUM,K 4.4 mmol/L (3.5-5.1); PROTEIN TOTAL,TP 7.7 g/dL (6.4-8.2)
[2024-04-16] MEDS: diphenhydrAMINE 50 MG/ML SDV IVPUSH ONE (09:32)
[2024-04-16] MEDS: Dexamethasone 4 MG/ML SDV IVPUSH ONE (09:32)
== END 2024-04-16 09:55 | disposition home or self-care (01) ==
LOC: DL.ED 06:40
DX: R51.9 Headache, unspecified (principal); F17.210 Nicotine dependence, cigarettes, uncomplicated; Z79.82 Long term (current) use of aspirin; Z79.899 Other long term (current) drug therapy; Z86.16 Personal history of COVID-19
CPT/HCPCS: 36415; 70450; 80053; 82947; 83735; 85025; 96361; 96374; 96375; 99284; J1100; J1200; J2405; J7030

== ENCOUNTER 2024-09-07 19:57 | Emergency (ER) | payer MEDICAID ==
[2024-09-07 20:42] VITALS: BP 127/66; PULSE 69
== END 2024-09-07 22:35 | disposition left against medical advice (07) ==
LOC: DL.ED 19:57
DX: Z53.21 Procedure and treatment not carried out due to patient leaving prior to being seen by health care provider (principal)

== ENCOUNTER 2024-09-19 16:04 | Emergency (ER) | payer MEDICAID ==
[2024-09-19] MEDS: Sodium Chloride 0.9% 10 ML Syringe FLUSH PRN (16:38)
[2024-09-19 16:52] LABS: APPEARANCE,URINE SLIGHTLY CLOUDY (CLEAR); BILIRUBIN,URINE NEGATIVE (NEGATIVE); COLOR,URINE YELLOW (YELLOW); GLUCOSE,URINE NEGATIVE (NEGATIVE); KETONES,URINE 15 (NEGATIVE); LEUKOCYTE ESTERASE,URINE TRACE (NEGATIVE); NITRITE,URINE NEGATIVE (NEGATIVE); OCCULT BLOOD,URINE TRACE-INTACT (NEGATIVE); PH,URINE 5.5 (5.0-9.0); PROTEIN,URINE 30 (NEGATIVE); UROBILINOGEN,URINE 0.2 mg/dL (0.2-1.0)
[2024-09-19] MEDS: Ketorolac 30 MG/ML SDV IVPUSH ONE (16:52)
[2024-09-19 16:58] LABS: AMPHETAMINES,URINE POSITIVE (NEGATIVE); BARBITURATES,URINE NEGATIVE (NEGATIVE); BENZODIAZEPINE,URINE NEGATIVE (NEGATIVE); MDMA (ECSTASY), URINE NEGATIVE (NEGATIVE); METHADONE,URINE NEGATIVE (NEGATIVE); METHAMPHETAMINES,URINE NEGATIVE (NEGATIVE); OPIATES,URINE NEGATIVE (NEGATIVE); OXYCODONE,URINE NEGATIVE (NEGATIVE); PHENCYCLIDINE,URINE NEGATIVE (NEGATIVE); TCA,URINE NEGATIVE (NEGATIVE)
[2024-09-19 17:02] LABS: BASOPHILS PERCENT AUTO 0.6 % (0.0-1.0); EOSINOPHILS PERCENT AUTO 1.1 % (1.0-3.0); HEMATOCRIT 35.1 % (37.0-47.0); HEMOGLOBIN 11.7 g/dL (12.0-16.0); LYMPHOCYTES PERCENT AUTO 32.1 % (20.5-50.1); MEAN CORPUSCULAR HEMOGLOBIN 32.1 pg (27.0-34.0); MEAN CORPUSCULAR HGB CONC 33.3 g/dL (33.0-35.0); MEAN CORPUSCULAR VOLUME 96.2 fL (80-100); MONOCYTES PERCENT AUTO 18.2 % (2-8); PLATELET COUNT,PLT 448 10^3/uL (150-450); RED BLOOD CELL COUNT 3.65 10^6/uL (4.2-5.4)
[2024-09-19 17:04] LABS: AMORPHOUS SEDIMENT,URINE FEW /HPF (NOT SEEN); BACTERIA,URINE MANY /HPF (0-FEW/HPF); EPITHELIAL CELLS,URINE MODERATE /HPF (NOT SEEN); MUCUS,URINE MODERATE /LPF (NOT SEEN); RBC,URINE 0-5 /HPF (0-5)
[2024-09-19 17:27] LABS: A/G RATIO 1.3; ALANINE AMINOTRANSFERASE,ALT 26 U/L (14-59); ALBUMIN 4.4 g/dL (3.4-5.0); ALKALINE PHOSPHATASE 54 U/L (46-116); ANION GAP 13.2 mEq/L (7-13); ASPARTATE AMNIOTRANSFERASE,AST 19 U/L (15-37); BILIRUBIN TOTAL 0.5 mg/dL (0.2-1.0); BLOOD UREA NITROGEN,BUN 22 mg/dL (7-18); BUN/CREATININE RATIO 23.2 (No establ ref range); CALCIUM 9.1 mg/dL (8.5-10.1); CARBON DIOXIDE,CO2 27 mmol/L (21-32); CHLORIDE,CL 101 mmol/L (98-107); CREATININE 0.95 mg/dL (0.55-1.02); EST CRCL DRUG DOSING (CG) 77.32 mL/min; GLUCOSE RANDOM 110 mg/dL (70-99); MAGNESIUM 2.2 mg/dL (1.8-2.4); POTASSIUM,K 3.2 mmol/L (3.5-5.1); PROTEIN TOTAL,TP 7.9 g/dL (6.4-8.2); SODIUM,NA 138 mmol/L (136-145)
[2024-09-19 17:29] LABS: LACTIC ACID 1.7 mmol/L (0.4-2.0)
[2024-09-19 17:32] LABS: C-REACTIVE PROTEIN < 0.50 ng/dL (<=0.50); ESTIMATED GFR 78 mL/min (>=60)
[2024-09-19 17:40] VITALS: BP 117/82; PULSE 78
[2024-09-19] MEDS: Potassium Chloride 10 MEQ Tab.ER PO ONE (18:21)
== END 2024-09-19 18:27 | disposition home or self-care (01) ==
LOC: DL.ED 16:04
DX: N83.201 Unspecified ovarian cyst, right side (principal); F17.210 Nicotine dependence, cigarettes, uncomplicated; Z90.89 Acquired absence of other organs; Z86.16 Personal history of COVID-19; Z79.82 Long term (current) use of aspirin; Z79.899 Other long term (current) drug therapy
CPT/HCPCS: 36415; 76705; 80053; 80305; 81001; 81025; 83605; 83735; 85025; 86140; 87086; 96374; 99284; A9270; J1885; 87088; 87186

== ENCOUNTER 2024-09-20 17:20 | Emergency (ER) | payer MEDICAID ==
[2024-09-20 17:33] VITALS: BP 126/75; PULSE 78
[2024-09-20] MEDS: oxyCODONE 5 MG Tab PO ONE (17:55)
[2024-09-20] MEDS: Take Home: Acetaminophen/oxyCODONE 325-5 MG, 5 Tab Pack PO ONE (18:32)
== END 2024-09-20 18:34 | disposition home or self-care (01) ==
LOC: DL.ED 17:20
DX: N83.201 Unspecified ovarian cyst, right side (principal); Z79.82 Long term (current) use of aspirin; Z79.899 Other long term (current) drug therapy; Z86.16 Personal history of COVID-19
CPT/HCPCS: 99283; A9270-GY

== ENCOUNTER 2025-06-11 16:21 | Emergency (ER) | payer MEDICAID ==
[2025-06-11 17:28] VITALS: BP 144/89; PULSE 87
== END 2025-06-11 18:22 | disposition home or self-care (01) ==
LOC: DL.ED 16:21
DX: S82.832A Other fracture of upper and lower end of left fibula, initial encounter for closed fracture (principal); Z79.82 Long term (current) use of aspirin; Z79.899 Other long term (current) drug therapy; Z86.16 Personal history of COVID-19; Z95.0 Presence of cardiac pacemaker; X50.1XXA Overexertion from prolonged static or awkward postures, initial encounter; Y93.89 Activity, other specified
CPT/HCPCS: 73610; 99283; A9270